=== PATIENT | male | born 1950 | race Caucasian/White ===

== ENCOUNTER 2021-02-11 19:24 | Inpatient (IN) | payer MEDICARE, OTHER ==
[~2021-02-11] VITALS: Ht 167.6 cm; Wt 73.5 kg
[2021-02-11] MEDS ORDERED: IV NORMAL SALINE 1000 ML BAG IV ONE ×2 (20:15→22:00)
[2021-02-11] MEDS ORDERED: ZINC TABLET GT (20:16)
[2021-02-11] MEDS ORDERED: MUPI22OI2 (20:16)
[2021-02-11] MEDS ORDERED: LACT1CAP7 GT (20:16)
[2021-02-11] MEDS ORDERED: DOXY100C2 GT (20:16)
[2021-02-11] MEDS ORDERED: LEVE500T20 GT (20:16)
[2021-02-11] MEDS ORDERED: EPOE1VIA4 IJ (20:16)
[2021-02-11] MEDS ORDERED: ACET-73 GT (20:16)
[2021-02-11] MEDS ORDERED: AMLO5TAB4 GT (20:16)
[2021-02-11] MEDS ORDERED: MAG-55 GT (20:16)
[2021-02-11] MEDS ORDERED: DOCU-141 GT (20:16)
[2021-02-11] MEDS ORDERED: INSU100V7 SQ (20:16)
[2021-02-11] MEDS ORDERED: FERROUS SULFATE GT (20:16)
[2021-02-11 20:21] LABS: *BILIRUBIN,URIN NEGATIVE (NEGATIVE); *BLOOD, URINE TRACE (NEGATIVE); *COLOR,URINE YELLOW (YELLOW); *KETONES,URINE NEGATIVE (NEGATIVE); *UROBILINOGEN,URINE 0.2 E.U./dl (NORMAL); LEUKOCYTE ESTERASE ,URINE 1+ (NEGATIVE); NITRITE, URINE NEGATIVE (NEGATIVE); PH,URINE 8.5 (5.0-8.0); UGLUCOSE NEGATIVE (NEGATIVE)
--- NOTE | 2021-02-11 20:23 | NUR ---
MD ARREAGA in room to do MSE.
[2021-02-11 20:31] LABS: *CLARITY,URINE SLIGHTLY CLOUDY (CLEAR)
[2021-02-11 20:32] LABS: BACTERIA,URINE MODERATE /HPF (NONE SEEN); SQUAMOUS EPITHELIAL CELL,UR FEW /HPF (NONE SEEN); TRIPLE PHOSPHATE CRYSTAL,UR FEW /HPF (NONE SEEN); WBC,URINE 50-80 /HPF (0-3)
[2021-02-11] MEDS ORDERED: CEFTRIAXONE 2 G in IV DEXTROSE 5% 100 ML IV ONE (20:45)
[2021-02-11] MEDS ORDERED: VANCOMYCIN IV 1,000 MG in IV DEXTROSE 5% 250 ML IV ONE (20:45)
--- NOTE | 2021-02-11 21:00 | NUR ---
Patient resting in room, no signs of acute distress noted at this time.
[2021-02-11 21:20] LABS: BASOPHILS % (AUTO) 0.2 % (0.0-2.0); EOSINOPHILS # (AUTO) 0.1 K/uL (0.0-0.7); EOSINOPHILS % (AUTO) 0.3 % (0.0-7.0); HEMATOCRIT 26.6 % (36.7-47.1); HEMOGLOBIN 8.1 g/dL (12.5-16.3); LYMPHOCYTES # (AUTO) 0.8 K/uL (20.0-40.0); LYMPHOCYTES % (AUTO) 3.5 % (20.5-51.5); MEAN CORPUSCULAR HEMOGLOBIN 26.7 uug (23.8-33.4); MEAN CORPUSCULAR HGB CONC 31 g/dL (32.5-36.3); MONOCYTES # (AUTO) 0.8 K/uL (2.0-10.0); MONOCYTES % (AUTO) 3.7 % (0.0-11.0); NEUTROPHILS # (AUTO) 20.6 K/uL (1.8-8.9); NEUTROPHILS % (AUTO) 92.3 % (38.5-71.5); PLATELET COUNT (AUTO) 140 K/uL (152-348); RED BLOOD CELL COUNT(AUTO) 3.05 MIL/uL (4.06-5.63); WHITE BLOOD COUNT (AUTO) 22.3 K/uL (3.6-10.2)
[2021-02-11 21:37] LABS: CARBON DIOXIDE 29 mmol/L (21-32); CHLORIDE 102 mmol/L (98-107); CREATININE 1.2 mg/dL (0.6-1.3); GLUCOSE 157 mg/dL (74-106); POTASSIUM 5.2 mmol/L (3.5-5.1); UREA NITROGEN, BLOOD 56 mg/dL (7-18)
[2021-02-11 21:43] LABS: ALANINE AMINOTRANSFERASE 14 U/L (16-63); ALKALINE PHOSPHATASE 262 U/L (50-136); ASPARTATE AMINOTRANSFERASE < 5 U/L (15-37); BILIRUBIN,DIRECT 0.4 mg/dL (0.0-0.2); BILIRUBIN,TOTAL 0.7 mg/dL (0.2-1.0); TOTAL PROTEIN, SERUM 7.5 g/dL (6.4-8.2)
[2021-02-11] MEDS ORDERED: CEFTRIAXONE 1 G VIAL ONE (21:50)
[2021-02-11] MEDS ORDERED: VANCOMYCIN IV 200 ML ONE (23:12)
[2021-02-11] MEDS ORDERED: ONDANSETRON 4 MG/2 ML VIAL IV PRN (23:30)
[2021-02-11] MEDS ORDERED: MORPHINE SULFATE 2 MG/1 ML DISP.SYRIN IV PRN (23:30)
[2021-02-11] MEDS ORDERED: Z GUARD REMEDY PASTE 57 GM TUBE TOP PRN (23:30)
--- NOTE | 2021-02-11 23:40 | NUR ---
Report given to KHADRA Puga. Patient will be going to room 306.
--- NOTE | 2021-02-11 23:55 | NUR ---
Pt. admitted to [facility], under care of DIRECT SALES REPRESENTATIVE Yash Alatorre. Belongs List completed, all original paperwork with patient.
[2021-02-11 23:56] LABS: IRON, SERUM 15 ug/dL (50-175)
--- NOTE | 2021-02-11 23:59 | NUR ---
RECEIVED PT FROM ER VIA [facility]. UNDER THE CARE OF DEYSI KENT NP.DX:UTI, SEPSIS. PT IN NO ACUTE DISTRESS. PT ON MECHANICAL VENTILATOR. USP ASSESSMENT DONE. PT HAD MULTIPLE SKIN ISSUES. PT ON ARROYO CATHETER. IV INTACT AND IV RUNNING. SAFETY AND COMFORT PROVIDED. WILL CONTINUE TO MONITOR.
--- NOTE | 2021-02-12 | NUR ---
PT HAS NO BELONGINGS. PT ARROYO WAS PLACED IN THE PT FACILITY.SEIZURE PRECAUTION OBSERVED. WILL CONTINUE TO MONITOR.
[2021-02-12 00:30] VITALS: BP 123/53
[2021-02-12] MEDS: levoFLOXacin 750MG/D5W 750 MG in PREMIXED 1 EACH IV SCH (01:58)
[2021-02-12] MEDS: ENOXAPARIN SODIUM 40 MG/0.4 ML DISP.SYRIN SQ SCH ×2 (02:00→20:52)
[2021-02-12 04:40] VITALS: BP 121/63
[2021-02-12] MEDS: CEFEPIME HCL 2 G in IV DEXTROSE 5% 100 ML IV SCH ×2 (05:00→17:20)
--- NOTE | 2021-02-12 06:38 | NUR ---
PT SLEPT INTERMITTENTLY. PT IN NO ACUTE DISTRESS. IV INTACT. PT ON MECHANICAL VENT FIO2 40%. IV INTACT. SAFETY AND COMFORT PROVIDED. ALL NEEDS ARE MET. WILL ENDORSE TO INCOMING NURSE FOR CONTINUITY OF CARE.
[2021-02-12] MEDS ORDERED: DEXTROSE 50% 50 ML DISP.SYRIN IV PRN (06:45)
--- NOTE | 2021-02-12 06:45 | NUR ---
INSULIN MILD SLIDING SCALE Q6H ORDERED AND WOUND CONSULT BY NAVIN SHELLEY.
[2021-02-12 06:53] LABS: BASOPHILS % (AUTO) 0.1 % (0.0-2.0); LYMPHOCYTES # (AUTO) 0.8 K/uL (20.0-40.0); LYMPHOCYTES % (AUTO) 5.5 % (20.5-51.5); MEAN CORPUSCULAR HEMOGLOBIN 26.5 uug (23.8-33.4); MEAN CORPUSCULAR HGB CONC 30 g/dL (32.5-36.3); MONOCYTES # (AUTO) 0.8 K/uL (2.0-10.0); MONOCYTES % (AUTO) 5.3 % (0.0-11.0); RED BLOOD CELL COUNT(AUTO) 2.77 MIL/uL (4.06-5.63)
[2021-02-12] MEDS: BLOOD SUGAR DIAGNOSTIC 1 EACH STRIP VI SCH ×3 (06:53→17:26)
[2021-02-12 06:55] LABS: EOSINOPHILS # (AUTO) 0.3 K/uL (0.0-0.7); EOSINOPHILS % (AUTO) 2.4 % (0.0-7.0); HEMATOCRIT 24.6 % (36.7-47.1); MEAN CORPUSCULAR VOLUME 88.7 fL (73.0-96.2); NEUTROPHILS # (AUTO) 12.8 K/uL (1.8-8.9); NEUTROPHILS % (AUTO) 86.7 % (38.5-71.5); PLATELET COUNT (AUTO) 120 K/uL (152-348); WHITE BLOOD COUNT (AUTO) 14.7 K/uL (3.6-10.2)
[2021-02-12 07:26] LABS: MAGNESIUM 2.2 mg/dL (1.8-2.4); POTASSIUM 4.5 mmol/L (3.5-5.1)
--- NOTE | 2021-02-12 07:30 | NUR ---
PATIENT RECEIVED WITH EYES OPEN LYING BED. PATIENT IS ON MECHANICAL VENT VIA TRACHEOSTOMY WITH FIO2 40%. NO DIFFICULTIES BREATHING NOTED AT THIS TIME. PATIENT HAS AN IV ON THE LEFT WRIST 22G THAT IS PATENT WITH NO REDNESS OR SWELLING AT THIS TIME. PATIENT HAS MULTIPLE SCABS AND BRUISES OVER BOTH UPPER AND LOWER EXTREMITIES.
[2021-02-12 07:31] VITALS: BP 105/54
[2021-02-12 07:56] LABS: HEMOGLOBIN 7.3 g/dL (12.5-16.3)
--- NOTE | 2021-02-12 08:30 | NUR ---
DR. BUI AT PATIENT BEDSIDE. NEW ORDERS FOR FOLLOW-UP ECHO NOTED AT THIS TIME.
--- NOTE | 2021-02-12 08:50 | NUR ---
DR GOLDSMITH HERE TO SEE PATIENT AT BEDSIDE. NEW ORDER FOR SPUTUM CULTURE NOTED AT THIS TIME.
--- NOTE | 2021-02-12 09:00 | NUR ---
PHYSICAL THERAPY HERE TO SEE PATIENT FOR THERAPEUTIC EXERCISES.
[2021-02-12] MEDS: GLUCERNA 1.2 1000ML LIQUID GT PRN (10:26)
[2021-02-12] MEDS: VANCOMYCIN IV 1,000 MG in IV DEXTROSE 5% 250 ML IV SCH (10:26)
[2021-02-12 11:53] VITALS: BP 115/56
--- NOTE | 2021-02-12 18:00 | NUR ---
PATIENT IS RESTING IN BED WITH EYES OPEN. CONTINUES TO SHOW V-PACING ON TELE AND IS CONTINUING ON MECHANICAL VENTILATION THROUGH THE TRACHEOSTOMY WITH FIO2 40%. PT CONTINUES TO RECEIVE G-TUBE FEEDING WITH GLUCERNA 1.2 AT 65 ML/H. WILL CONTINUE TO ADMINISTER IV ATB ORDERED WITH NO ADVERSE REACTIONS. CALL LIGHT WITHIN REACH AND WILL CONTINUE TO MONITOR PATIENT.
[2021-02-12 20:06] VITALS: BP 96/53
--- NOTE | 2021-02-12 22:03 | NUR ---
Pt awake, but unbale to follow commands, pt is also nonverbal. upper extremities contractured present Addendum: 02/12/21 at 2205 by REGISTRY [facility] INPATIENT RN1 RN Amended: Links added.
[2021-02-13] MEDS: VANCOMYCIN IV 1,000 MG in IV DEXTROSE 5% 250 ML IV SCH ×2 (00:02→11:00)
[2021-02-13 00:06] VITALS: BP 143/60
--- NOTE | 2021-02-13 00:28 | NUR ---
No acute changes from previous assessment Addendum: 02/13/21 at 0028 by REGISTRY [facility] INPATIENT RN1 RN Amended: Links added.
--- NOTE | 2021-02-13 00:29 | NUR ---
No acute changes from previous assessment Addendum: 02/13/21 at 0030 by REGISTRY [facility] INPATIENT RN1 RN Amended: Links added.
--- NOTE | 2021-02-13 00:29 | NUR ---
No acute changes from previous assessment Addendum: 02/13/21 at 0029 by REGISTRY [facility] INPATIENT RN1 RN Amended: Links added.
[2021-02-13] MEDS: levoFLOXacin 750MG/D5W 750 MG in PREMIXED 1 EACH IV SCH ×2 (01:06→23:28)
[2021-02-13] MEDS: BLOOD SUGAR DIAGNOSTIC 1 EACH STRIP VI SCH ×4 (01:11→17:37)
[2021-02-13] MEDS: INSULIN REGULAR, HUMAN 300 UNIT/3 ML VIAL SQ PRN ×2 (01:46→17:47)
[2021-02-13 04:00] VITALS: BP 146/70
--- NOTE | 2021-02-13 06:18 | NUR ---
Dr. portillo at bedside, made aware pt's heart rate have been fluctuating in 112-140s
[2021-02-13] MEDS: CEFEPIME HCL 2 G in IV DEXTROSE 5% 100 ML IV SCH ×2 (06:27→17:13)
[2021-02-13] MEDS: METOPROLOL TARTRATE 25 MG TABLET PO SCH ×3 (06:28→21:37)
[2021-02-13 06:51] LABS: BASOPHILS % (AUTO) 0.3 % (0.0-2.0); EOSINOPHILS # (AUTO) 0.4 K/uL (0.0-0.7); EOSINOPHILS % (AUTO) 2.9 % (0.0-7.0); HEMATOCRIT 23.9 % (36.7-47.1); HEMOGLOBIN 7.5 g/dL (12.5-16.3); LYMPHOCYTES # (AUTO) 0.8 K/uL (20.0-40.0); LYMPHOCYTES % (AUTO) 6.2 % (20.5-51.5); MEAN CORPUSCULAR HEMOGLOBIN 27.3 uug (23.8-33.4); MEAN CORPUSCULAR HGB CONC 31 g/dL (32.5-36.3); MEAN CORPUSCULAR VOLUME 87.5 fL (73.0-96.2); MONOCYTES # (AUTO) 0.9 K/uL (2.0-10.0); MONOCYTES % (AUTO) 7.3 % (0.0-11.0); NEUTROPHILS # (AUTO) 10.4 K/uL (1.8-8.9); NEUTROPHILS % (AUTO) 83.3 % (38.5-71.5); PLATELET COUNT (AUTO) 122 K/uL (152-348); RED BLOOD CELL COUNT(AUTO) 2.74 MIL/uL (4.06-5.63); WHITE BLOOD COUNT (AUTO) 12.5 K/uL (3.6-10.2)
[2021-02-13 07:08] LABS: MAGNESIUM 2.2 mg/dL (1.8-2.4); PHOSPHOROUS 3.3 mg/dL (2.5-4.9); POTASSIUM 4.6 mmol/L (3.5-5.1)
--- NOTE | 2021-02-13 07:30 | NUR ---
PATIENT RECEIVED IN BED WITH EYES OPEN. LEFT UPPER ARM 18G MID-LINE INSERTED LAST NIGHT PATENT WITH NO SWELLING OR REDNESS. PATIENT IS ON MECHANICAL VENTILATION THROUGH TRACHEOSTOMY WITH FIO2 40% AND CURRENTLY SATURATING AT 99%. CONTINUING G-TUBE FEEDING WITH GLUCERNA 1.2 AT 65 ML/H RUNNING. CALL LIGHT WITHIN REACH. WILL CONTINUE TO OBSERVE.
[2021-02-13 08:11] VITALS: BP 105/51
[2021-02-13 08:32] LABS: ABG BASE EXCESS -0.6 mmol/L; ABG HCO3 22.8 mmol/L; ABG PCO2 32.1 mmHg (35.0-45.0); ABG PO2 69.2 mmHg (75.0-100.0); ABG SITE RIGHT RADIAL; ABG TOTAL HEMOGLOBIN 7.3 G/dL (13.5-18.0); COHb 2.7 % (0.5-1.5); MetHb 0.3 % (0.0-1.5); VENT MODE VENT - A/C; VT, ABG 500 mL
[2021-02-13] MEDS: GLUCERNA 1.2 1000ML LIQUID GT PRN (08:39)
[2021-02-13] MEDS ORDERED: FUROSEMIDE 20 MG/2 ML VIAL IV SCH (09:00)
--- NOTE | 2021-02-13 11:33 | NUR ---
VANCOMYCIN TROUGH LEVELS TAKEN TODAY AND RESULT IS 25.5. CALLED TO CONFIRM WITH PHARMACY AND WILL HOLD 1100 VANCOMYCIN IV ATB.
[2021-02-13 11:42] VITALS: BP 129/49
--- NOTE | 2021-02-13 11:59 | NUR ---
WOUND CARE CONSULT: PT PRESENTS WITH MULTIPLE SKIN ISSUES INCLUDING SACRAL INTACT DEEP TISSUE INJURY WITH SURROUNDING SCARRING, RASHES TO PERINEUM AND BACK, GENERALIZED EDEMA, DISCOLORATION TO EXTREMITIES WITH CONTRACTED UPPER EXTREMITIES AND RAISED WOUND TO RT CHEST, ALL PRESENT ON ADMISSION. RECOMMEND SURGICAL CONSULT. DR VILLA NOTIFIED OF CONSULT REQUEST. PT IS ON FIRST STEP CIRRUS LOW AIRLOSS MATTRESS. ALL SKIN PROTECTION RECOMMENDATIONS DISCUSSED WITH NURSING STAFF. MD IN AGREEMENT WITH PLAN OF CARE.
[2021-02-13] MEDS: LORAZEPAM 2 MG/1 ML VIAL IV PRN (12:39)
[2021-02-13 14:59] VITALS: BP 138/69
[2021-02-13] MEDS ORDERED: ACETAMINOPHEN ES 500 MG TABLET GT PRN (15:00)
[2021-02-13] MEDS ORDERED: MAG HYDROX/AL HYDROX/SIMETH 30 ML LIQUID UDC GT PRN (15:00)
[2021-02-13] MEDS: VANCOMYCIN IV 750 MG in IV DEXTROSE 5% 250 ML IV SCH (15:18)
[2021-02-13] MEDS ORDERED: MUPIROCIN 2% OINT 22 GM TUBE NS SCH (17:00)
[2021-02-13] MEDS: FERROUS SULFATE 300 MG/5 ML LIQUID UDC GT SCH (17:13)
[2021-02-13] MEDS: levETIRAcetam 500 MG/5 ML LIQUID UDC GT SCH (17:13)
--- NOTE | 2021-02-13 19:30 | NUR ---
PATIENT ALERT BUT FORGETFUL, HOB ELEVATED, TRACH WITH VENT, PATIENT HAS NO EPISODE OF DESATURATION, GT INTACT, GTF TOLERATE WELL NO RESIDUAL NOTED AT THIS TIME, PATIENT HAS NO S/S OF HYPO/HYPERGYLCEMIA NOTED. PATIENT TELE MONITOR.V PACING, A FIB AT THIS TIME. CONT TO MONITOR.
[2021-02-13 20:08] VITALS: BP 127/37
[2021-02-13] MEDS: DOCUSATE SODIUM 100 MG/10 ML LIQUID UDC GT SCH (21:32)
[2021-02-13] MEDS: INSULIN GLARGINE,HUM 300 UNITS/3 ML CARTRIDGE SQ SCH (21:33)
[2021-02-13] MEDS: ENOXAPARIN SODIUM 40 MG/0.4 ML DISP.SYRIN SQ SCH (21:35)
[2021-02-14 00:04] VITALS: BP 119/44
--- NOTE | 2021-02-14 00:07 | NUR ---
PATIENT BLOOD SUGAR WAS LOW, BUT PATIENT ASYMPTOMATIC, AWAKE, RESPONSIVE TO PAINFUL STIMULI, SKIN DRY. GIVEN ORANGE JUICE VIA GT. AND WILL RECHECK BLOOD SUGAR. CONT TO MONITOR.
--- NOTE | 2021-02-14 00:36 | NUR ---
PATIENT AWAKE EYES OPEN, RESISTIVE WITH CARE, RECHECK BLOOD SUGAR, BS 132. CONT TO MONITOR.
[2021-02-14] MEDS: BLOOD SUGAR DIAGNOSTIC 1 EACH STRIP VI SCH ×4 (00:39→18:00)
[2021-02-14] MEDS: LORAZEPAM 2 MG/1 ML VIAL IV PRN (01:07)
[2021-02-14] MEDS: ACETAMINOPHEN 650 MG/20.3 ML LIQUID UDC GT PRN (01:07)
--- NOTE | 2021-02-14 01:37 | NUR ---
PATIENT AWAKE WITH EPISODE OF AGITATION, TRIES TO PULLED TRACH TUBING, AND GT TUBING, PATIENT WAS KEPT CLEAN AND DRY, ASSESS FOR PAIN, REORIENT PATIENT BUT NOT EFFECTIVE, GIVEN ATIVAN ORDERED, WITH EFFECTIVE RESULTS. PATIENT WAS TURNED AND REPOSITION.
[2021-02-14] MEDS: VANCOMYCIN IV 750 MG in IV DEXTROSE 5% 250 ML IV SCH (04:00)
[2021-02-14 04:08] VITALS: BP 118/56
--- NOTE | 2021-02-14 04:29 | NUR ---
VANCOMYCIN IV NOT GIVEN, TROUGH 25.5 ON 02/13/21.
[2021-02-14] MEDS: CEFEPIME HCL 2 G in IV DEXTROSE 5% 100 ML IV SCH ×2 (05:56→22:20)
[2021-02-14] MEDS: METOPROLOL TARTRATE 25 MG TABLET PO SCH ×3 (05:58→22:21)
[2021-02-14 06:38] LABS: BASOPHILS % (AUTO) 0.4 % (0.0-2.0); EOSINOPHILS # (AUTO) 0.9 K/uL (0.0-0.7); EOSINOPHILS % (AUTO) 9.3 % (0.0-7.0); HEMATOCRIT 24.9 % (36.7-47.1); HEMOGLOBIN 7.6 g/dL (12.5-16.3); LYMPHOCYTES # (AUTO) 0.5 K/uL (20.0-40.0); LYMPHOCYTES % (AUTO) 5.4 % (20.5-51.5); MEAN CORPUSCULAR HEMOGLOBIN 26.8 uug (23.8-33.4); MEAN CORPUSCULAR HGB CONC 31 g/dL (32.5-36.3); MEAN CORPUSCULAR VOLUME 87.8 fL (73.0-96.2); MONOCYTES # (AUTO) 0.7 K/uL (2.0-10.0); MONOCYTES % (AUTO) 7.6 % (0.0-11.0); NEUTROPHILS # (AUTO) 7.4 K/uL (1.8-8.9); NEUTROPHILS % (AUTO) 77.3 % (38.5-71.5); PLATELET COUNT (AUTO) 124 K/uL (152-348); RED BLOOD CELL COUNT(AUTO) 2.84 MIL/uL (4.06-5.63); WHITE BLOOD COUNT (AUTO) 9.6 K/uL (3.6-10.2)
[2021-02-14 06:54] LABS: CREATININE 1.1 mg/dL (0.6-1.3); MAGNESIUM 2.2 mg/dL (1.8-2.4); PHOSPHOROUS 3.4 mg/dL (2.5-4.9); POTASSIUM 4.3 mmol/L (3.5-5.1)
--- NOTE | 2021-02-14 07:16 | NUR ---
PATIENT AWAKE, NO SOB NO CHEST PAIN. TELE MONITOR V PACING A FIB. PATIENT RESISTIVE WITH CARE, PULLED OUT MIDLINE. PATIENT HOB ELEVATED TOLERATE FEEDING, NO RESIDUAL NOTED. TURN AND REPOSITION, CONT TO MONITOR. ENDORSED TO NEXT SHIFT.
--- NOTE | 2021-02-14 07:47 | NUR ---
SARA RN PRINT SHOP HELPER WAS NOTIFIED THAT PATIENT PULLED OUT MIDLINE, ALL IV ORDERS ARE ON HOLD DUE TO NO IV ACCESS. ORDER FAXED.
[2021-02-14] MEDS: PROTEIN SUPPLEMENT (PROSTAT) 30 ML LIQUID GT SCH (08:00)
[2021-02-14 08:20] VITALS: BP 115/49
[2021-02-14] MEDS: levETIRAcetam 500 MG/5 ML LIQUID UDC GT SCH ×2 (08:52→17:57)
[2021-02-14] MEDS: FERROUS SULFATE 300 MG/5 ML LIQUID UDC GT SCH ×3 (08:52→17:57)
[2021-02-14] MEDS: ACIDOPHILUS/BULGARICUS CHEW TAB GT SCH (08:53)
[2021-02-14] MEDS: ZINC SULFATE 220 MG CAPSULE GT SCH (08:53)
[2021-02-14] MEDS ORDERED: AMLODIPINE 5 MG TABLET GT SCH (09:00)
[2021-02-14] MEDS: FUROSEMIDE 20 MG/2 ML VIAL IV SCH ×2 (09:00→21:43)
--- NOTE | 2021-02-14 10:15 | NUR ---
NO IV ACCESS Rekha PRE SCHOOL MANAGER notified at this time that patient pulled Midline out and Nursing cnc supervisor was aware that reinsertion was needed. Per Nursing Ham Stringer Glo, Midline team won't be here until 6PM today. Pt has Lasix 20 mg due 9 am and Vancomycin due at 1600, both IV. Pt is actively pulling his lines, GT and trach/vent. Unable to redirect. Received new orders for Lasix 20 mg tab GT x 1, and then, orders for Bilateral Soft Wrist Restraints. Will carry out.
[2021-02-14] MEDS ORDERED: FUROSEMIDE 20 MG TABLET GT ONE (10:30)
[2021-02-14 11:33] VITALS: BP 126/66
[2021-02-14 15:15] VITALS: BP 130/45
--- NOTE | 2021-02-14 16:22 | NUR ---
FAB RE-SCHEDULED/MIDLINE INSERTION Hamzah of pharmacy was notified of lack of IV access for this patient to administer Vancomycin. He will reschedule the dose and the rescheduling of Trough/Peak lab draw. Pt is resting with no signs of distress.
[2021-02-14] MEDS: DOCUSATE SODIUM 100 MG/10 ML LIQUID UDC GT SCH (17:56)
--- NOTE | 2021-02-14 18:00 | NUR ---
PENDING STOOL OB NO BOWEL MOVEMENT DURING SHIFT. NEED SAMPLE FOR STOOL OB, BUT HGB HAS BEEN TRENDING UP SINCE DROP ON 02/11/21, WAS GIVEN AN UPDATE ON PATIENT'S STATUS. ADMINISTERED QHS DUE COLACE AT THIS TIME TO HELP PT HAVE A BOWEL MOVEMENT.
--- NOTE | 2021-02-14 18:18 | NUR ---
PICC/MIDLINE REINSERTION, F/UP TO PLACED FOR PICC LINE INSERTION with TELEPHONE CONSENT obtained from . AT THIS TIME, THE INSERTION TEAM IS NOT YET IN UNIT, CHRISTINA RN SENIOR SALES REPRESENTATIVE MADE AWARE. SHE WILL F/UP. UNABLE TO ADMINISTER LASIX 20 MG IV AND MAXEPIME DUE AT THIS TIME. PER PHARMACY, OKAY TO GIVE AT A LATER TIME. WILL ENDORSE TO INCOMING SHIFT
--- NOTE | 2021-02-14 18:22 | NUR ---
PT STABLE THROUGHOUT SHIFT PT WAS AWAKE THE ENTIRE SHIFT. PT IN NO ACUTE DISTRESS. HE IS ON BILATERAL SOFT RESTRAINTS AT THIS TIME, AND IS DEEMED NECESSARY PER Q15 VISUAL CHECK AND Q2H ASSESSMENT, DOCUMENTED. DURING TRIALS OF REMOVING THE RESTRAINT, HE STILL TRIES TO MOVE ARMS AND ACCIDENTALLY PULL HIS VENT AND G TUBE. OTHERWISE, VITALS HAS BEEN STABLE. AFIB CONTINUES ON MONITOR, UNABLE TO SEE PACER SPIKES/CAPTURE AT THIS TIME. AFIB > 100 BPM DURING CARE, BUT CONTINUES TO BE 80-90/S HR DURING REST. HE IS NOT ON ANY RESPIRATORY DISTRESS, RR:20, FIO2:40, TC:500, PEEP:5 SETTING MAINTAINED AND HE IS SATURATING BETWEEN 91-99%. DURING PERIODS OF LOWER O2 SAT, PATIENT IS SUCTIONED WITH WHITE/CLEAR THIN SECRETIONS NOTED, AND PATIENT TOLERATES IT WELL. SAFETY AND COMFORT PROVIDED. ALL NEEDS ARE MET. WILL ENDORSE TO INCOMING NURSE FOR CONTINUITY OF CARE. PICC/MIDLINE INSERTION STILL PENDING.
--- NOTE | 2021-02-14 18:58 | NUR ---
FOLLOWED UP PICC/MIDLINE INSERTION. CHRISTINA GAVIRIA WILL FOLLOW UP
--- NOTE | 2021-02-14 19:30 | NUR ---
Patient received from KHADRA Hdz. Pt assessed, opens eye spontaneously, nonverbal, on bilateral soft restraints, trach to vent, tolerating current vent settings, no s/s of respiratory distress, pt suctioned with minimal secretions. Crane cath present, pt comfortable and stable at this time.
--- NOTE | 2021-02-14 20:00 | NUR ---
MIDLINE INSERTED THIS PM by FIRE ALARM REPAIRER, LEFT UPPER ARM 18G
[2021-02-14 20:04] VITALS: BP 138/62
--- NOTE | 2021-02-14 21:15 | NUR ---
Spoke with Jarod, pHarmacist regrding change of time for pt's cefepime and vancomycin due to no IV access earlier. Cefipime changed to 10m and vanco changed to 11pm per pharmacist advice
[2021-02-14] MEDS: INSULIN GLARGINE,HUM 300 UNITS/3 ML CARTRIDGE SQ SCH (21:38)
[2021-02-14] MEDS: ENOXAPARIN SODIUM 40 MG/0.4 ML DISP.SYRIN SQ SCH (21:39)
--- NOTE | 2021-02-14 21:43 | NUR ---
LASIX IVP due for 1700 not given, pt received PO 20mg due to not having access
[2021-02-15] VITALS (7 sets, daily range): BP systolic 104–145; BP diastolic 41–65
[2021-02-15] MEDS: VANCOMYCIN IV 750 MG in IV DEXTROSE 5% 250 ML IV SCH ×3 (00:06→22:21)
[2021-02-15] MEDS: levoFLOXacin 750 MG TABLET GT SCH ×2 (00:46→22:21)
[2021-02-15] MEDS: INSULIN REGULAR, HUMAN 300 UNIT/3 ML VIAL SQ PRN ×3 (01:23→23:33)
[2021-02-15] MEDS: BLOOD SUGAR DIAGNOSTIC 1 EACH STRIP VI SCH ×5 (01:24→23:31)
--- NOTE | 2021-02-15 04:11 | NUR ---
Patient resting comfortably. Vitals stable. No s/s of respiratory distress. Gtube feeding line changed and new Glucerna container started. <10cc of residual
[2021-02-15] MEDS: METOPROLOL TARTRATE 25 MG TABLET PO SCH ×3 (06:46→21:04)
[2021-02-15 06:50] LABS: BASOPHILS % (AUTO) 0.6 % (0.0-2.0); EOSINOPHILS # (AUTO) 0.7 K/uL (0.0-0.7); EOSINOPHILS % (AUTO) 8.8 % (0.0-7.0); HEMATOCRIT 24.4 % (36.7-47.1); HEMOGLOBIN 7.6 g/dL (12.5-16.3); LYMPHOCYTES # (AUTO) 0.6 K/uL (20.0-40.0); MEAN CORPUSCULAR HEMOGLOBIN 26.8 uug (23.8-33.4); MEAN CORPUSCULAR HGB CONC 31 g/dL (32.5-36.3); MEAN CORPUSCULAR VOLUME 86.6 fL (73.0-96.2); MONOCYTES # (AUTO) 0.7 K/uL (2.0-10.0); NEUTROPHILS # (AUTO) 5.7 K/uL (1.8-8.9); NEUTROPHILS % (AUTO) 73.6 % (38.5-71.5); PLATELET COUNT (AUTO) 119 K/uL (152-348); RED BLOOD CELL COUNT(AUTO) 2.82 MIL/uL (4.06-5.63); WHITE BLOOD COUNT (AUTO) 7.7 K/uL (3.6-10.2)
[2021-02-15 07:04] LABS: CREATININE 1.1 mg/dL (0.6-1.3); MAGNESIUM 2.2 mg/dL (1.8-2.4); PHOSPHOROUS 3.3 mg/dL (2.5-4.9); POTASSIUM 4.3 mmol/L (3.5-5.1)
--- NOTE | 2021-02-15 07:28 | NUR ---
HAND OFF TO DAY SHIFT MARGARET GAVIRIA
--- NOTE | 2021-02-15 07:45 | NUR ---
Awake, opens eyes spontaneously, non verbal. Trach to vent, settings of AC 22, TV 500, FIO2 40%, PEEP 5; Secretions suctioned. Tele Afib 75. Glucerna at 65ml/hr per GT. Crane catheter to drainage bag. Midline LUE intact.
[2021-02-15] MEDS: ACIDOPHILUS/BULGARICUS CHEW TAB GT SCH (08:23)
[2021-02-15] MEDS: FERROUS SULFATE 300 MG/5 ML LIQUID UDC GT SCH ×3 (08:23→17:39)
[2021-02-15] MEDS: FUROSEMIDE 20 MG/2 ML VIAL IV SCH ×2 (08:24→17:39)
[2021-02-15] MEDS: PROTEIN SUPPLEMENT (PROSTAT) 30 ML LIQUID GT SCH (08:24)
[2021-02-15] MEDS: levETIRAcetam 500 MG/5 ML LIQUID UDC GT SCH ×2 (08:24→17:39)
[2021-02-15] MEDS: ZINC SULFATE 220 MG CAPSULE GT SCH (08:24)
[2021-02-15] MEDS: CEFEPIME HCL 2 G in IV DEXTROSE 5% 100 ML IV SCH ×2 (10:18→21:03)
--- NOTE | 2021-02-15 11:00 | NUR ---
Bed bath given. oral and trach care done. Wound care done. Repositioned comfortably
[2021-02-15] MEDS ORDERED: BUPIVACAINE/EPI PF 0.25% 30 ML VIAL ONE ×2 (15:06→15:07)
--- NOTE | 2021-02-15 15:06 | NUR ---
Secretions suctioned. Repositioned comfortably
[2021-02-15] MEDS ORDERED: BUPIVACAINE 0.25% 30 ML VIAL ONE (15:07)
--- NOTE | 2021-02-15 16:54 | NUR ---
With BM to soft brown stool in small amount. Incontinence care done. Repositioned comfortably
--- NOTE | 2021-02-15 20:00 | NUR ---
Received patient lying in bed. Alert and awake with eyes wide open but non-verbal. In no acute distress. No signs or symptoms of pain or SOB. Controlled A. fib on tele at 82/min. Trach with vent in place. Suction secretions PRN and able to obtain small amount of secretions. GT feeding ongoing. Midline on left upper arm intact and patent. Abdirizak soft wrist restraint in place to prevent pt from pulling lines. Circulation checked. Crane catheter intact and draining via gravity. Safety measure initiated. Continue to monitor.
[2021-02-15] MEDS: DOCUSATE SODIUM 100 MG/10 ML LIQUID UDC GT SCH (20:07)
[2021-02-15] MEDS: ENOXAPARIN SODIUM 40 MG/0.4 ML DISP.SYRIN SQ SCH (20:07)
[2021-02-15] MEDS: ACETAMINOPHEN 650 MG/20.3 ML LIQUID UDC GT PRN (20:07)
[2021-02-15] MEDS: INSULIN GLARGINE,HUM 300 UNITS/3 ML CARTRIDGE SQ SCH (20:19)
[2021-02-15] MEDS: GLUCERNA 1.2 1000ML LIQUID GT PRN (23:28)
[2021-02-16] VITALS (8 sets, daily range): BP systolic 107–149; BP diastolic 46–65
[2021-02-16] MEDS: METOPROLOL TARTRATE 25 MG TABLET PO SCH ×3 (05:13→21:06)
[2021-02-16] MEDS: BLOOD SUGAR DIAGNOSTIC 1 EACH STRIP VI SCH ×3 (05:18→17:28)
--- NOTE | 2021-02-16 06:11 | NUR ---
Alert non-verbal. In no acute distress. No signs or symptoms of pain or SOB. Controlled A. fib on tele at 73/min. Suction secretions PRN and able to obtain small amount of secretions. GT feeding and flushing well ivan. Midline on left upper arm remains intact and patent. No adverse reaction noted from IV ABX. Abdirizak soft wrist restraint in place. Crane catheter intact and draining via gravity. Safety measure maintained.
[2021-02-16 07:17] LABS: CREATININE 1.3 mg/dL (0.6-1.3); MAGNESIUM 2.1 mg/dL (1.8-2.4); PHOSPHOROUS 3.8 mg/dL (2.5-4.9); POTASSIUM 3.8 mmol/L (3.5-5.1)
[2021-02-16 07:21] LABS: BASOPHILS % (AUTO) 0.5 % (0.0-2.0); EOSINOPHILS # (AUTO) 1.2 K/uL (0.0-0.7); EOSINOPHILS % (AUTO) 14.7 % (0.0-7.0); HEMATOCRIT 24.7 % (36.7-47.1); HEMOGLOBIN 7.8 g/dL (12.5-16.3); LYMPHOCYTES # (AUTO) 0.8 K/uL (20.0-40.0); LYMPHOCYTES % (AUTO) 9.8 % (20.5-51.5); MEAN CORPUSCULAR HEMOGLOBIN 26.5 uug (23.8-33.4); MEAN CORPUSCULAR HGB CONC 31 g/dL (32.5-36.3); MEAN CORPUSCULAR VOLUME 84.3 fL (73.0-96.2); MONOCYTES # (AUTO) 0.9 K/uL (2.0-10.0); MONOCYTES % (AUTO) 10.9 % (0.0-11.0); NEUTROPHILS # (AUTO) 5.4 K/uL (1.8-8.9); NEUTROPHILS % (AUTO) 64.1 % (38.5-71.5); PLATELET COUNT (AUTO) 125 K/uL (152-348); RED BLOOD CELL COUNT(AUTO) 2.93 MIL/uL (4.06-5.63); WHITE BLOOD COUNT (AUTO) 8.4 K/uL (3.6-10.2)
[2021-02-16] MEDS ORDERED: ALBUTEROL SULFATE 2.5 MG/3 ML NEBU ONE (07:22)
--- NOTE | 2021-02-16 08:00 | NUR ---
Awake, opens eyes spontaneously, non verbal. Trach to vent, settings of AC 22, TV 500, FIO2 40%, PEEP 5; Secretions suctioned. Tele Afib 80, Glucerna at 65ml/hr per GT. Crane catheter to drainage bag. Midline LUE intact. Attempts to pull out trach, tubings. On bilateral soft wrist restraints, monitored per protocol
[2021-02-16 08:06] LABS: ABG BASE EXCESS -0.7 mmol/L; ABG HCO3 21.1 mmol/L; ABG PCO2 24.5 mmHg (35.0-45.0); ABG PH 7.552 (7.350-7.450); ABG PO2 72.4 mmHg (75.0-100.0); ABG SITE RIGHT RADIAL; COHb 2.6 % (0.5-1.5); MetHb 0.5 % (0.0-1.5); O2Hb 92.2 % (94.0-97.0); VENT MODE VENT - A/C; VT, ABG 500 mL
[2021-02-16] MEDS: PROTEIN SUPPLEMENT (PROSTAT) 30 ML LIQUID GT SCH (09:01)
[2021-02-16] MEDS: FERROUS SULFATE 300 MG/5 ML LIQUID UDC GT SCH ×3 (09:01→17:28)
[2021-02-16] MEDS: levETIRAcetam 500 MG/5 ML LIQUID UDC GT SCH ×2 (09:01→17:28)
[2021-02-16] MEDS: FUROSEMIDE 20 MG/2 ML VIAL IV SCH ×2 (09:02→17:28)
[2021-02-16] MEDS: ZINC SULFATE 220 MG CAPSULE GT SCH (09:02)
[2021-02-16] MEDS: ACIDOPHILUS/BULGARICUS CHEW TAB GT SCH (09:02)
[2021-02-16] MEDS: CEFEPIME HCL 2 G in IV DEXTROSE 5% 100 ML IV SCH ×2 (09:03→21:03)
--- NOTE | 2021-02-16 10:02 | NUR ---
Secretions suctioned. Oral care and trach care done. Vent settings changed per RT to AC 18, TV 450
[2021-02-16] MEDS: VANCOMYCIN IV 750 MG in IV DEXTROSE 5% 250 ML IV SCH (11:00)
--- NOTE | 2021-02-16 11:19 | NUR ---
vanco trough 29.4, vanco dose held
[2021-02-16] MEDS: INSULIN REGULAR, HUMAN 300 UNIT/3 ML VIAL SQ PRN (12:07)
--- NOTE | 2021-02-16 14:00 | NUR ---
Secretions suctioned. Repositioned comfortably
[2021-02-16] MEDS: GLUCERNA 1.2 1000ML LIQUID GT PRN (17:28)
--- NOTE | 2021-02-16 17:45 | NUR ---
Tolerating G tube feeding. Trach to vent with settings of AC 18, TV 450, fio2 40%, PEEP 5 Afebrile. Kept dry and comfortable.
[2021-02-16] MEDS ORDERED: DOSING PER PHARMACY-TOBRAMY NEB/INHALATION XX PRN (18:30)
[2021-02-16 19:23] LABS: *BILIRUBIN,URIN NEGATIVE (NEGATIVE); *BLOOD, URINE NEGATIVE (NEGATIVE); *CLARITY,URINE CLEAR (CLEAR); *COLOR,URINE YELLOW (YELLOW); *KETONES,URINE NEGATIVE (NEGATIVE); *UROBILINOGEN,URINE 0.2 E.U./dl (NORMAL); LEUKOCYTE ESTERASE ,URINE TRACE (NEGATIVE); NITRITE, URINE NEGATIVE (NEGATIVE); UGLUCOSE NEGATIVE (NEGATIVE)
[2021-02-16 19:30] LABS: *CREATININE,URINE 35.9 mg/dL (30-125); *URINE TOTAL PROTEIN RANDOM 55.2 mg/dL (<150/24HR); BACTERIA,URINE RARE /HPF (NONE SEEN); SQUAMOUS EPITHELIAL CELL,UR FEW /HPF (NONE SEEN)
[2021-02-16] MEDS: DOCUSATE SODIUM 100 MG/10 ML LIQUID UDC GT SCH (20:33)
[2021-02-16] MEDS: ENOXAPARIN SODIUM 40 MG/0.4 ML DISP.SYRIN SQ SCH (20:41)
[2021-02-16] MEDS: INSULIN GLARGINE,HUM 300 UNITS/3 ML CARTRIDGE SQ SCH (20:42)
[2021-02-16] MEDS ORDERED: VANCOMYCIN IV 750 MG in IV DEXTROSE 5% 250 ML IV SCH (21:00)
--- NOTE | 2021-02-16 21:10 | NUR ---
Patient in bed awake nonverbal with Trach in place on vent setting as ordered. HOB elevated.Gtube intact with GTube feeding running at 65ml/hr. No residual. Gtube feeding tolerated well.Aspiration precaution observed at all times.Midline on left upper arm patent and intact.Abdirizak soft restraints in place. Crane catheter draining well.Suctioned Patient PRN .Breathing tx provided by Rt.Administered IV ATb as ordered. No a/r noted. Will continue to monitor.
[2021-02-16] MEDS: TOBRAMYCIN SULFATE 80 MG/2 ML VIAL NEB SCH (21:20)
[2021-02-17 00:28] VITALS: BP 149/50
[2021-02-17] MEDS: BLOOD SUGAR DIAGNOSTIC 1 EACH STRIP VI SCH ×4 (00:35→17:48)
[2021-02-17] MEDS: ACETAMINOPHEN 650 MG/20.3 ML LIQUID UDC GT PRN (00:39)
[2021-02-17 05:11] VITALS: BP_SYST 126; BP_SYST 147; BP_DIAS 48; BP_DIAS 60
[2021-02-17] MEDS: METOPROLOL TARTRATE 25 MG TABLET PO SCH ×2 (05:31→15:10)
[2021-02-17 07:00] LABS: BASOPHILS % (AUTO) 0.5 % (0.0-2.0); CARBON DIOXIDE 25 mmol/L (21-32); CHLORIDE 104 mmol/L (98-107); CREATININE 1.2 mg/dL (0.6-1.3); EOSINOPHILS # (AUTO) 1.7 K/uL (0.0-0.7); EOSINOPHILS % (AUTO) 20.2 % (0.0-7.0); GLUCOSE 120 mg/dL (74-106); HEMOGLOBIN 8.1 g/dL (12.5-16.3); LYMPHOCYTES # (AUTO) 0.8 K/uL (20.0-40.0); LYMPHOCYTES % (AUTO) 9.7 % (20.5-51.5); MAGNESIUM 2.3 mg/dL (1.8-2.4); MEAN CORPUSCULAR HEMOGLOBIN 26.4 uug (23.8-33.4); MEAN CORPUSCULAR HGB CONC 31 g/dL (32.5-36.3); MEAN CORPUSCULAR VOLUME 85.3 fL (73.0-96.2); MONOCYTES # (AUTO) 0.7 K/uL (2.0-10.0); MONOCYTES % (AUTO) 8.3 % (0.0-11.0); NEUTROPHILS # (AUTO) 5.3 K/uL (1.8-8.9); NEUTROPHILS % (AUTO) 61.3 % (38.5-71.5); PHOSPHOROUS 4.1 mg/dL (2.5-4.9); PLATELET COUNT (AUTO) 153 K/uL (152-348); POTASSIUM 3.8 mmol/L (3.5-5.1); RED BLOOD CELL COUNT(AUTO) 3.05 MIL/uL (4.06-5.63); UREA NITROGEN, BLOOD 42 mg/dL (7-18); WHITE BLOOD COUNT (AUTO) 8.6 K/uL (3.6-10.2)
[2021-02-17 07:25] LABS: LYMPHOCYTES % (MANUAL) 9 % (20-40); MONOCYTES % (MANUAL) 7 % (2-10); NEUTROPHILS % (MANUAL) 65 % (42-75)
[2021-02-17 07:26] VITALS: BP 114/48
[2021-02-17 07:26] LABS: EOSINOPHILS % (MANUAL) 19 % (0-8)
[2021-02-17 08:44] LABS: ABG HCO3 20.5 mmol/L; ABG PCO2 26.9 mmHg (35.0-45.0); ABG PH 7.499 (7.350-7.450); ABG PO2 79.4 mmHg (75.0-100.0); ABG SITE RIGHT RADIAL; ABG TOTAL HEMOGLOBIN 8.9 G/dL (13.5-18.0); COHb 2.1 % (0.5-1.5); MetHb 0.3 % (0.0-1.5); O2Hb 93.8 % (94.0-97.0); VENT MODE VENT - A/C; VT, ABG 450 mL
[2021-02-17] MEDS: ZINC SULFATE 220 MG CAPSULE GT SCH (09:01)
[2021-02-17] MEDS: ACIDOPHILUS/BULGARICUS CHEW TAB GT SCH (09:01)
[2021-02-17] MEDS: PROTEIN SUPPLEMENT (PROSTAT) 30 ML LIQUID GT SCH (09:01)
[2021-02-17] MEDS: FUROSEMIDE 20 MG/2 ML VIAL IV SCH ×2 (09:02→17:23)
[2021-02-17] MEDS: FERROUS SULFATE 300 MG/5 ML LIQUID UDC GT SCH ×3 (09:02→17:23)
[2021-02-17] MEDS: levETIRAcetam 500 MG/5 ML LIQUID UDC GT SCH ×2 (09:02→17:23)
[2021-02-17] MEDS: TOBRAMYCIN SULFATE 80 MG/2 ML VIAL NEB SCH (09:10)
[2021-02-17] MEDS: CEFEPIME HCL 2 G in IV DEXTROSE 5% 100 ML IV SCH (09:23)
--- NOTE | 2021-02-17 10:06 | NUR ---
VENT SETTING CHANGES MADE. RESPIRATORY RATE CHANGED TO 15. PT CURRENTLY ON AC15/450/40%/+5 PEEP
[2021-02-17] MEDS ORDERED: ENOX40DI SQ (11:59)
[2021-02-17] MEDS ORDERED: CEFE2PIG2 IV (11:59)
[2021-02-17] MEDS ORDERED: METO25TA6 PO (11:59)
[2021-02-17] MEDS ORDERED: FURO-152 PO (11:59)
[2021-02-17] MEDS ORDERED: INSU100V28 SQ (11:59)
[2021-02-17] MEDS ORDERED: TOBR40VI2 NEB (11:59)
[2021-02-17] MEDS ORDERED: PROT30LI GT (11:59)
--- NOTE | 2021-02-17 12:00 | NUR ---
Spoke with ANGIE franks ID. notified of increased redness on left back radiating to his arm and chest. D/c Maxpine/cefepime and started Benadryl and Claritin. No sob noted. No elevated temp noted. Will give benadryl and claritin pam when pharmacy acknowledge meds.
[2021-02-17] MEDS: INSULIN REGULAR, HUMAN 300 UNIT/3 ML VIAL SQ PRN (12:02)
[2021-02-17] MEDS ORDERED: LORATADINE 10 MG TABLET GT SCH (12:30)
[2021-02-17] MEDS ORDERED: diphenhydrAMINE 25 MG CAP PO PRN (12:30)
[2021-02-17 12:41] VITALS: BP 121/40
[2021-02-17] MEDS ORDERED: DIPH25TA25 PO (13:48)
[2021-02-17] MEDS ORDERED: LORA10TA7 PO (13:48)
[2021-02-17 15:41] VITALS: BP 123/59
--- NOTE | 2021-02-17 17:59 | NUR ---
Updated pictures taken. Report given to [facility] ambulance nurse and Reny aaron from [facility]. Pt is in no acute distress. Pt tolerated new setting prescribed by yarn dry room worker with VENT setting ac to 15. TDV 450, FI02 40%, peep of 5.
== END 2021-02-17 17:50 | DRG 870 ==
LOC: ER 19:28 → TELE-TD3 23:22
PROVIDERS: ADMIT Nurse Practitioner Family; ATTEND Registered Nurse
PROC: 5A1955Z Respiratory Ventilation, Greater than 96 Consecutive Hours (ICD-10-PCS; principal; 2021-02-11)
PROC: 05H633Z Insertion of Infusion Device into Left Subclavian Vein, Percutaneous Approach (ICD-10-PCS; 2021-02-12)
PROC: B547ZZA Ultrasonography of Left Subclavian Vein, Guidance (ICD-10-PCS; 2021-02-12)
PROC: 05H633Z Insertion of Infusion Device into Left Subclavian Vein, Percutaneous Approach (ICD-10-PCS; 2021-02-14)
PROC: B547ZZA Ultrasonography of Left Subclavian Vein, Guidance (ICD-10-PCS; 2021-02-14)
DX: A41.9 Sepsis, unspecified organism (principal); I50.33 Acute on chronic diastolic (congestive) heart failure; N17.0 Acute kidney failure with tubular necrosis; J15.1 Pneumonia due to Pseudomonas; J96.20 Acute and chronic respiratory failure, unspecified whether with hypoxia or hypercapnia; N39.0 Urinary tract infection, site not specified; Z99.11 Dependence on respirator [ventilator] status; E44.0 Moderate protein-calorie malnutrition; G93.40 Encephalopathy, unspecified; I48.20 Chronic atrial fibrillation, unspecified; I48.92 Unspecified atrial flutter; I11.0 Hypertensive heart disease with heart failure; Z93.0 Tracheostomy status; Z93.1 Gastrostomy status; L98.429 Non-pressure chronic ulcer of back with unspecified severity; G40.909 Epilepsy, unspecified, not intractable, without status epilepticus; K21.9 Gastro-esophageal reflux disease without esophagitis; Z95.0 Presence of cardiac pacemaker; I25.10 Atherosclerotic heart disease of native coronary artery without angina pectoris; E87.5 Hyperkalemia; E86.0 Dehydration; E78.5 Hyperlipidemia, unspecified; B96.4 Proteus (mirabilis) (morganii) as the cause of diseases classified elsewhere; Z20.822 Contact with and (suspected) exposure to COVID-19; E88.09 Other disorders of plasma-protein metabolism, not elsewhere classified; Z68.26 Body mass index [BMI] 26.0-26.9, adult; D64.9 Anemia, unspecified; L98.8 Other specified disorders of the skin and subcutaneous tissue; L89.156 Pressure-induced deep tissue damage of sacral region; N40.1 Benign prostatic hyperplasia with lower urinary tract symptoms; I27.20 Pulmonary hypertension, unspecified; B96.5 Pseudomonas (aeruginosa) (mallei) (pseudomallei) as the cause of diseases classified elsewhere; Z79.01 Long term (current) use of anticoagulants; I07.1 Rheumatic tricuspid insufficiency; N31.9 Neuromuscular dysfunction of bladder, unspecified; R13.10 Dysphagia, unspecified; Z74.01 Bed confinement status; Z79.4 Long term (current) use of insulin; G30.9 Alzheimer's disease, unspecified; F02.80 Dementia in other diseases classified elsewhere, unspecified severity, without behavioral disturbance, psychotic disturbance, mood disturbance, and anxiety; L27.1 Localized skin eruption due to drugs and medicaments taken internally; T36.1X5A Adverse effect of cephalosporins and other beta-lactam antibiotics, initial encounter; Y92.89 Other specified places as the place of occurrence of the external cause; Z85.46 Personal history of malignant neoplasm of prostate
CPT/HCPCS: 36415; 36600; 70030-TC; 71045; 83550; 83605; 83735; 84100; 84153; 84156; 84300; 85025; 85730; 87040; 87070; 87077; 87086; 93005; 93307; 94002; 94003; 94640; A4217; A4663; G0378; J0692; J0696; J1650; J1815; J1940; J1956; J2060; J2270; J3260; J3370; J3490; J7030; J7040; J7060; Q0163; U0003